=== PATIENT | female | born 1945 | race Caucasian/White ===

== ENCOUNTER 2018-08-25 13:36 | Outpatient (REF) | payer BC, SELFPAY ==
[2018-08-25 22:05] LABS: TSH (W/Ref FT4) 2.65 uIU/mL (0.358-3.74)
== END 2018-08-25 13:56 ==
LOC: NCHCN 13:36
PROVIDERS: PCP Internal Medicine; Visit Provider Family Medicine
DX: E03.9 Hypothyroidism, unspecified (principal)
CPT/HCPCS: 84443

== ENCOUNTER 2019-07-03 16:09 | Outpatient (REF) | payer BC, SELFPAY ==
[2019-07-03 21:26] LABS: HCT 41.3 % (36.0-46.0); Mean Corp. HGB Concentration 31.5 g/dL (32.0-36.0); Mean Corpuscular Hemoglobin 30.7 pg (27.0-33.0); Mean Corpuscular Volume 97.4 fL (80-95); Mean Platelet Volume 11.3 fL (8.0-11.0); Platelet Count 284 x1000/uL (130-400); RBC 4.24 m/cumm (4.00-5.20); White Blood Cell Count 5.27 k/cumm (4.4-10.8)
[2019-07-03 21:38] LABS: ALT 27 U/L (14-59); AST 23 U/L (15-37); Albumin 3.9 g/dL (3.4-5.0); Alkaline Phosphatase 115 U/L (46-116); Anion Gap 10.7 mmol/L (3-11); BUN 15 mg/dL (7-18); Bilirubin, Total 0.7 mg/dL (0.2-1.0); CO2 29.3 mmol/L (21.0-32.0); CREATININE 0.73 mg/dL (0.55-1.02); Calcium 9.8 mg/dL (8.5-10.1); Chloride 102 mmol/L (98-107); Glucose 90 mg/dL (74-106); Potassium 3.4 mmol/L (3.5-5.1); Sodium 142 mmol/L (136-145); Total Protein 6.9 g/dL (6.4-8.2)
== END 2019-07-03 16:29 ==
LOC: NCHCN 16:09
PROVIDERS: PCP Internal Medicine; Visit Provider Family Medicine
DX: I10 Essential (primary) hypertension (principal); Z01.818 Encounter for other preprocedural examination
CPT/HCPCS: 80053; 85027